=== PATIENT | female | born 1945 | race American Indian/Alaskan Native ===

== ENCOUNTER 2019-01-07 20:08 | Emergency (ER) | payer MEDICARE ==
[2019-01-07] MEDS ORDERED: NORCO 5/325 PO ONE (20:52)
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
--- NOTE | 2019-01-07 21:44 | XRay Report ---
PROCEDURE: XR SHOULDER 2+V RT TECHNIQUE: Right shoulder radiographs, three views. HISTORY: injury COMPARISONS: None . FINDINGS: Fracture (s) and/or Dislocation(s): An acute fracture is noted involving the inferior angle of right scapula with mild displacement. Old healed fracture deformities are noted involving right seventh an d eighth ribs . Joint space(s): Normal . Soft tissues: Normal . Bone mineralization: Normal . Foreign bodies: None . IMPRESSION: Acute fracture inferior angle right scapula. This document is electronically signed by Clayton Coyle MD., January 07 2019 09:41:55 PM ET
[2019-01-08] MEDS ORDERED: MORPHINE IM ONE (00:48)
[2019-01-08] MEDS ORDERED: PERCOCET 5/325 PO ONE (08:49)
[2019-01-08 15:41] VITALS: BP 128/54
== END 2019-01-08 13:56 | disposition home or self-care (01) ==
LOC: ED 20:08
DX: S42.101A Fracture of unspecified part of scapula, right shoulder, initial encounter for closed fracture (principal); K21.9 Gastro-esophageal reflux disease without esophagitis; I12.9 Hypertensive chronic kidney disease with stage 1 through stage 4 chronic kidney disease, or unspecified chronic kidney disease; N18.3 Chronic kidney disease, stage 3 (moderate); G43.909 Migraine, unspecified, not intractable, without status migrainosus; J45.909 Unspecified asthma, uncomplicated; Z79.899 Other long term (current) drug therapy; Z88.6 Allergy status to analgesic agent; Z88.8 Allergy status to other drugs, medicaments and biological substances; W18.2XXA Fall in (into) shower or empty bathtub, initial encounter; Y93.89 Activity, other specified; Y92.89 Other specified places as the place of occurrence of the external cause; Y99.8 Other external cause status
CPT/HCPCS: 73030; 96372; 99284; J2270

== ENCOUNTER 2019-09-02 19:03 | Emergency (ER) | payer MEDICARE ==
--- NOTE | 2019-09-02 19:28 | Emergency Department Report ---
Chief Complaint: Seizure Stated Complaint: SEIZURE - HPI History of Present Illness: 74 y.o. female with history of depression and bipolar disorder presents from [facility] after having a seizure while sitting down. Patient denies urine incontinence. Patient denies syncope. Patient complains of headache. Patient denies biting of the tongue. Patient has no prior history of seizure disorder. Patient states that she did not sleep last night. - Exam Vital Signs: Vital Signs 09/02/19 09/02/19 19:16 19:20 Temperature 97.4 F L 97.4 F L Respiratory 18 Rate Blood Pressure 150/97 O2 Sat by Pulse 98 Oximetry MSE screening note: Focused history and physical exam performed. Due to findings the following was ordered: CBC, CMP. Tox screen, CT Head ED Disposition for MSE Condition: Stable
--- NOTE | 2019-09-02 20:35 | Cat Scan Report ---
CT head/brain wo con INDICATION / CLINICAL INFORMATION: Seizure. TECHNIQUE: Axial CT imaging of brain was obtained without contrast. Coronal and sagittal reformatted imaging obt ained and reviewed. All CT scans at this location are performed using CT dose reduction for ALARA by means of automated exposure control. COMPARISON: None available. FINDINGS: No intracranial hemorrhage, mass, or midline shift identified. No extra-axial fluid collection or sug gestion of acute territorial infarction. Ventricular system and basilar cisterns are unremarkable. Age-appropriate cerebral/cerebellar atrophy noted. Mild microvascular angiopathic changes noted. Visualized paranasal sinuses and mastoid air cells are well aerated and clear. Prosthetic left orbit noted. No calvarial fracture noted. No soft tissue abnormality. IMPRESSION: 1. No acute intracranial abnormality. Age-related changes. Signer Name: Gale Mendoza MD Signed: 09/02/2019 8:31 PM Workstation Name: [id number]
[2019-09-02 21:22] LABS: Alanine Aminotransferase 22 units/L (7-56); Albumin 4.4 g/dL (3.9-5); BUN/Creatinine Ratio 15; Blood Urea Nitrogen 16 mg/dL (7-17); Calcium 10.3 mg/dL (8.4-10.2); Hemolysis Index 6
[2019-09-02 21:51] LABS: Hemoglobin 12.9 gm/dl (10.1-14.3); Mean Corpuscular HGB Conc 33 % (30-34); Mean Corpuscular Volume 90 fl (79-97); Platelet Count 307 K/mm3 (140-440); Red Blood Count 4.33 M/mm3 (3.65-5.03); Red Cell Distribution Width 13.5 % (13.2-15.2)
--- NOTE | 2019-09-02 23:12 | Emergency Department Report ---
ED Seizure HPI - General Chief Complaint: Seizure Stated Complaint: SEIZURE Time Seen by Provider: 09/02/19 22:12 Source: patient, EMS Mode of arrival: Wheelchair Limitations: No Limitations - History of Present Illness Initial Comments: 74-year-old female with history of hypertension and bipolar disorder presents the ED after having [address] [facility]. The first seizure was this morning after eating breakfast, second seizure was approximately 5 hours later. Patient reports she has been having headaches because her blood pressure medication was incorrect at [place]. Patient was admitted to [place] 2 days ago for her bipolar. Patient also states she did not get any sleep last night because she is also not receiving the same medication for sleep that her own physician was giving her. Patient has no history of seizures in the past. Patient has a noticeable tremor in the right arm, she states it is because she is cold, however son states it has been present for approximately 1 week now. MD Complaint: seizure -: This morning, This evening Seizure History: none Place: other Possible Precipitating Event: lack of sleep Associated Symptoms: denies: chest pain, fever/chills, shortness of breath, tongue injury Treatments Prior to Arrival: benzodiazepines - Related Data Home Medications Medication Instructions Recorded Confirmed Last Taken Atenolol/Chlorthalidone 0.5 tab PO QDAY 09/10/13 09/10/13 09/17/13 03:00 [Atenolol-Chlorthalidone 100-25 mg] 1 TAB B1/B2/B3/B5/B6/Iron/Meth/Choln 118 ml PO QDAY 09/10/13 09/10/13 09/16/13 [Geritol Tonic] Citalopram Hydrobromide [celeXA] 40 mg PO DAILY 09/10/13 09/10/13 09/16/13 40 MG Fenofibrate Nanocrystallized 145 mg PO QDAY 09/10/13 09/10/13 09/16/13 [Tricor] 145 MG Fexofenadine/Pseudoephedrine 1 each PO QDAY 09/10/13 09/10/13 09/16/13 [Fexofenadine-Pse ER 180-240 Tb] 1 TAB Ibandronate Sodium [Boniva] 150 mg PO QMONTH 09/10/13 09/10/13 Unknown Iron [Iron 18 MG TAB] 28 mg PO QDAY 09/10/13 09/10/1314 18 MG Lansoprazole [Prevacid] 15 mg PO QDAY 09/10/13 09/10/13 09/17/13 03:00 15 MG Levothyroxine [Synthroid] 88 mcg PO QAM 09/10/13 09/10/13 09/17/13 03:00 88 MCG Ziprasidone [Geodon] 60 mg PO QHS 09/10/13 09/10/13 09/16/13 60 MG buPROPion [Wellbutrin] 150 mg PO BID 09/10/13 09/10/13 09/16/13 75 MG busPIRone [Buspar] 15 mg PO TID 09/10/13 09/10/13 09/16/13 10 MG clonazePAM [KlonoPIN] 2 mg PO QHS 09/10/13 09/10/13 09/16/13 2 MG diphenhydrAMINE [Benadryl CAP] 50 mg PO QHS 09/10/13 09/10/13 09/16/13 50 MG donepeziL [Aricept] 10 mg PO QDAY 09/10/13 09/10/13 09/16/13 10 MG lamoTRIgine [LaMICtal] 200 mg PO QDAY 09/10/13 09/10/13 09/16/13 200 MG Previous Rx's Medication Instructions Recorded Last Taken Type HYDROcodone/APAP 5-325 [[place] 1 each PO Q6HR PRN #10 tablet 01/07/19 Unknown Rx 5/325] levETIRAcetam [Keppra TAB] 500 mg PO BID #60 tablet 09/03/19 Unknown Rx Allergies Allergy/AdvReac Type Severity Reaction Status Date / Time prednisone Allergy caused an Verified 09/07/13 14:42 abcess NSAIDS (Non-Steroidal AdvReac Unknown Verified 09/17/13 07:10 Anti-Inflamma STEROIDAL ANTIINFLAMMATORIES AdvReac Unknown Uncoded 09/17/13 07:20 ED Review of Systems ROS: Stated complaint: SEIZURE Other details as noted in HPI Comment: All other systems reviewed and negative Constitutional: denies: chills, fever Respiratory: denies: shortness of breath Cardiovascular: denies: chest pain Neurological: headache Psychiatric: other (reports insomnia) ED Past Medical Hx - Past Medical History Previous Medical History?: Yes Hx Hypertension: Yes (44 yrs) Hx GERD: Yes Hx Renal Disease: Yes (stage 3, Cr 1.1) Hx Headaches / Migraines: Yes Hx Psychiatric Treatment: Yes (Bipolar, Depression) Hx Asthma: Yes - Surgical History Past Surgical History?: No - Social History Smoking Status: Never Smoker Substance Use Type: None - Medications Home Medications: Home Medications Medication Instructions Recorded Confirmed Last Taken Type Atenolol/Chlorthalidone 0.5 tab PO QDAY 09/10/13 09/10/13 09/17/13 03:00 History [Atenolol-Chlorthalidone 100-25 mg] 1 TAB B1/B2/B3/B5/B6/Iron/Meth/Choln 118 ml PO QDAY 09/10/13 09/10/13 09/16/13 History [Geritol Tonic] Citalopram Hydrobromide [celeXA] 40 mg PO DAILY 09/10/13 09/10/13 09/16/13 History 40 MG Fenofibrate Nanocrystallized 145 mg PO QDAY 09/10/13 09/10/13 09/16/13 History [Tricor] 145 MG Fexofenadine/Pseudoephedrine 1 each PO QDAY 09/10/13 09/10/13 09/16/13 History [Fexofenadine-Pse ER 180-240 Tb] 1 TAB Ibandronate Sodium [Boniva] 150 mg PO QMONTH 09/10/13 09/10/13 Unknown History Iron [Iron 18 MG TAB] 28 mg PO QDAY 09/10/13 09/10/13 09/16/13 History 18 MG Lansoprazole [Prevacid] 15 mg PO QDAY 09/10/13 09/10/13 09/17/13 03:00 History 15 MG Levothyroxine [Synthroid] 88 mcg PO QAM 09/10/13 09/10/13 09/17/13 03:00 History 88 MCG Ziprasidone [Geodon] 60 mg PO QHS 09/10/13 09/10/13 09/16/13 History 60 MG buPROPion [Wellbutrin] 150 mg PO BID 09/10/13 09/10/13 09/16/13 History 75 MG busPIRone [Buspar] 15 mg PO TID 02/24/14 02/24/14 03/02/14 History 10 MG clonazePAM [KlonoPIN] 2 mg PO QHS 09/10/13 09/10/13 09/16/13 History 2 MG diphenhydrAMINE [Benadryl CAP] 50 mg PO QHS 09/10/13 09/10/13 09/16/13 History 50 MG donepeziL [Aricept] 10 mg PO QDAY 09/10/13 09/10/13 09/16/13 History 10 MG lamoTRIgine [LaMICtal] 200 mg PO QDAY 09/10/13 09/10/13 09/16/13 History 200 MG HYDROcodone/APAP 5-325 [[place] 1 each PO Q6HR PRN #10 tablet 01/07/19 Unknown Rx 5/325] levETIRAcetam [Keppra TAB] 500 mg PO BID #60 tablet 09/03/19 Unknown Rx ED Physical Exam - General Limitations: No Limitations General appearance: alert, in no apparent distress - Head Head exam: Present: atraumatic, normocephalic - Eye Eye exam: Present: normal appearance, EOMI - ENT ENT exam: Present: mucous membranes moist - Neck Neck exam: Present: normal inspection - Respiratory Respiratory exam: Present: normal lung sounds bilaterally. Absent: respiratory distress - Cardiovascular Cardiovascular Exam: Present: regular rate, normal rhythm - GI/Abdominal GI/Abdominal exam: Present: soft. Absent: distended, tenderness - Extremities Exam Extremities exam: Present: normal inspection - Neurological Exam Neurological exam: Present: alert, oriented X3, CN II-XII intact, other (resting tremor noted in right upper extremity). Absent: motor sensory deficit - Psychiatric Psychiatric exam: Present: normal affect, normal mood - Skin Skin exam: Present: warm, dry, intact, normal color. Absent: rash ED Course Vital Signs 09/02/19 09/02/19 09/02/19 19:16 19:20 19:29 Temperature 97.4 F L 97.4 F L 97.4 F L Pulse Rate 63 Respiratory 18 18 Rate Blood Pressure 150/97 Blood Pressure 150/97 [Left] O2 Sat by Pulse 98 98 Oximetry 09/03/19 09/03/19 09/03/19 00:25 01:02 01:14 Temperature Pulse Rate 65 Respiratory 16 Rate Blood Pressure 180/80 Blood Pressure 180/80 167/86 [Left] O2 Sat by Pulse 97 Oximetry ED Medical Decision Making - Lab Data Result diagrams: 09/02/19 21:17 09/02/19 20:22 - Radiology Data Radiology results: report reviewed, image reviewed - Medical Decision Making 74-year-old female presents to ED from [place] facility after having 2 seizures earlier today. Patient has no history of seizures in the past. She is currently back to her baseline. She is afebrile. She is neurologically intact, except for resting tremor in the right arm, which son states has been present for a couple of weeks now. Patient loaded with Keppra here in ED. Prescription given since patient did have 2 seizures today. Patient does report that she has not been sleeping. This may have contributed to the seizure today. Also may be taking new psychiatric medications that she was not on previously which may have lowered her seizure threshold. Son at bedside. Advised that patient needs to follow-up with neurologist. Prescriptions given. Return precautions given. - Differential Diagnosis intracranial abnormality, electrolyte abnormality, infection Critical care attestation.: If time is entered above; I have spent that time in minutes in the direct care of this critically ill patient, excluding procedure time. ED Disposition Clinical Impression: New onset seizure Disposition: DC-01 TO HOME OR SELFCARE Is pt being admited?: No Condition: Stable Instructions: New-Onset Seizure in Adults (ED) Prescriptions: levETIRAcetam [Keppra TAB] 500 mg PO BID #60 tablet Referrals: PRIMARY MD RUCHI [Primary Care Provider] - 3-5 Days KAYLEEN LEYVA MD [Referring] - 3-5 Days Time of Disposition: 00:21
[2019-09-02 23:34] LABS: Bilirubin,Urine NEG (Negative); Blood,Urine NEG (Negative); Color,Urine Yellow (Yellow); Protein,Urine <15 mg/dL mg/dL (Negative); Urobilinogen,Urine < 2.0 mg/dL (<2.0)
[2019-09-02] MEDS ORDERED: levETIRAcetam 500 MG TAB PO ONE ×2 (23:36→23:53)
[2019-09-02 23:41] LABS: Amphetamine Screen,Urine PRESUMPTIVE NEGATIVE; Benzodiazepines Screen,Urine PRESUMPTIVE NEGATIVE; Cannabinoid Screen,Urine PRESUMPTIVE NEGATIVE; Cocaine Screen,Urine PRESUMPTIVE NEGATIVE; Methadone Screen,Urine PRESUMPTIVE NEGATIVE; Opiate Screen,Urine PRESUMPTIVE NEGATIVE
[2019-09-02] MEDS: levETIRAcetam 1000 MG/NS 0.75% 1,000 MG/100 ML BAG IV ONE ×2 (23:48→23:54)
[2019-09-03] MEDS ORDERED: cloNIDine 0.1 MG TAB PO ONE (00:48)
[2019-09-03 01:14] VITALS: BP 167/86
== END 2019-09-03 01:21 | disposition home or self-care (01) ==
LOC: ED 19:03
DX: R56.9 Unspecified convulsions (principal); I10 Essential (primary) hypertension; K21.9 Gastro-esophageal reflux disease without esophagitis; G43.909 Migraine, unspecified, not intractable, without status migrainosus; Z79.899 Other long term (current) drug therapy; Z88.8 Allergy status to other drugs, medicaments and biological substances
CPT/HCPCS: 36415; 70450; 80053; 80307; 80320; 81001; 85025; G0480

== ENCOUNTER 2020-05-26 08:06 | Observation (INO) | payer MEDICARE ==
--- NOTE | 2020-05-26 10:09 | XRay Report ---
CHEST 1 VIEW INDICATION: Syncope. COMPARISON: None. FINDINGS: Support devices: None. Heart: Normal. Lungs/Pleura: No acute pulmonary or pleural findings. IMPRESSION: 1. No acute findings. Signer Name: Kolby Archer MD Signed: 05/26/2020 10:05 AM Workstation Name: [id number]
[2020-05-26 10:14] LABS: Basophils # (Auto) 0.1 K/mm3 (0.0-0.1); Basophils % (Auto) 1.2 % (0.0-1.8); Eosinophils # (Auto) 0.3 K/mm3 (0.0-0.4); Hematocrit 37.6 % (30.3-42.9); Hemoglobin 12.2 gm/dl (10.1-14.3); Lymphocytes # (Auto) 2.4 K/mm3 (1.2-5.4); Lymphocytes % (Auto) 44.5 % (13.4-35.0); Mean Corpuscular HGB Conc 32 % (30-34); Mean Corpuscular Volume 88 fl (79-97); Monocytes # (Auto) 0.5 K/mm3 (0.0-0.8); Monocytes % (Auto) 9.3 % (0.0-7.3); Platelet Count 271 K/mm3 (140-440); Red Blood Count 4.25 M/mm3 (3.65-5.03); Red Cell Distribution Width 13.4 % (13.2-15.2)
[2020-05-26 10:20] LABS: Alanine Aminotransferase 15 units/L (7-56); Albumin 4.2 g/dL (3.9-5)
[2020-05-26 10:27] LABS: BUN/Creatinine Ratio 25; Blood Urea Nitrogen 27 mg/dL (7-17); Hemolysis Index 21
[2020-05-26 10:30] LABS: Bilirubin,Direct < 0.2 mg/dL (0-0.2)
[2020-05-26 10:37] LABS: Bacteria,Urine 1+ /HPF (Negative); Bilirubin,Urine NEG (Negative); Blood,Urine NEG (Negative); Color,Urine Yellow (Yellow); Mucus,Urine 3+ /HPF; Protein,Urine <15 mg/dL mg/dL (Negative); Urobilinogen,Urine < 2.0 mg/dL (<2.0)
--- NOTE | 2020-05-26 10:38 | Cat Scan Report ---
NONENHANCED CT SCAN OF THE HEAD: INDICATION / CLINICAL INFORMATION: 75 years Female; Syncope. TECHNIQUE: Routine CT head without contrast. All CT scans at this location are performed using CT dos e reduction for ALARA by means of automated exposure control. COMPARISON: CT scan of the head from 09/02/2019 FINDINGS: BRAIN / INTRACRANIAL CONTENTS: No acute hemorrhage, mass effect, midline shift, hydrocephalus, or acu te, large territorial infarct. No chronic infarct or focal encephalomalacia. Chronic ischemic changes in the corpus stratum bilaterally; remains unchanged CRANIOCERVICAL JUNCTION: No significant abnormality. 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 ADDITIONAL FINDINGS: None. IMPRESSION: No acute focal parenchymal lesion in the brain CT findings remain unchanged Signer Name: Paul Lombardo MD Signed: 05/26/2020 10:33 AM Workstation Name: [id number]
--- NOTE | 2020-05-26 11:01 | Emergency Department Report ---
ED General Adult HPI - General Chief complaint: Pain General Stated complaint: LEG/HEAD PAIN Time Seen by Provider: 05/26/20 08:25 Source: patient, EMS Mode of arrival: Stretcher Limitations: No Limitations - History of Present Illness Initial comments: This is a 75-year-old female with a history of bipolar disorder and questionable seizures. She was found at her long term poorly responsive. She tells me that she thinks that she was just sleeping. She is emotionally labile and complains of chronic issues. She does not think that she was unresponsive. Medics found her to have stable vital signs and a normal glucose. She was transported withou t event to emergency department for further evaluation. She was responsive in route. She is able to answer questions adequately upon my encounter. -: unknown Associated Symptoms: denies other symptoms, other (Has chronic arthralgias) Treatments Prior to Arrival: none - Related Data Home Medications Medication Instructions Recorded Confirmed Last Taken Atenolol/Chlorthalidone 0.5 tab PO QDAY 09/10/13 09/10/13 09/17/13 03:00 [Atenolol-Chlorthalidone 100-25 mg] 1 TAB B1/B2/B3/B5/B6/Iron/Meth/Choln 118 ml PO QDAY 09/10/13 09/10/13 09/16/13 [Geritol Tonic] Citalopram Hydrobromide [celeXA] 40 mg PO DAILY 09/10/13 09/10/13 09/16/13 40 MG Fenofibrate Nanocrystallized 145 mg PO QDAY 09/10/13 09/10/13 09/16/13 [Tricor] 145 MG Fexofenadine/Pseudoephedrine 1 each PO QDAY 09/10/13 09/10/13 09/16/13 [Fexofenadine-Pse ER 180-240 Tb] 1 TAB Ibandronate Sodium [Boniva] 150 mg PO QMONTH 09/10/13 09/10/13 Unknown Iron [Iron 18 MG TAB] 28 mg PO QDAY 09/10/13 09/10/13 09/16/13 18 MG Lansoprazole [Prevacid] 15 mg PO QDAY 09/10/13 09/10/13 09/17/13 03:00 15 MG Levothyroxine [Synthroid] 88 mcg PO QAM 02/09/10/13 09/17/13 03:00 88 MCG Ziprasidone [Geodon] 60 mg PO QHS 09/10/13 09/10/13 09/16/13 60 MG buPROPion [Wellbutrin] 150 mg PO BID 09/10/13 09/10/13 09/16/13 75 MG busPIRone [Buspar] 15 mg PO TID 09/10/13 09/10/13 09/16/13 10 MG clonazePAM [KlonoPIN] 2 mg PO QHS 09/10/13 09/10/13 09/16/13 2 MG diphenhydrAMINE [Benadryl CAP] 50 mg PO QHS 09/10/13 09/10/13 09/16/13 50 MG donepeziL [Aricept] 10 mg PO QDAY 09/10/13 09/10/13 09/16/13 10 MG lamoTRIgine [LaMICtal] 200 mg PO QDAY 09/10/13 09/10/13 09/16/13 200 MG Previous Rx's Medication Instructions Recorded Last Taken Type HYDROcodone/APAP 5-325 [[place] 1 each PO Q6HR PRN #10 tablet 01/07/19 Unknown Rx 5/325] levETIRAcetam [Keppra TAB] 500 mg PO BID #60 tablet 09/03/19 Unknown Rx Allergies Allergy/AdvReac Type Severity Reaction Status Date / Time prednisone Allergy caused an Verified 09/07/13 14:42 abcess NSAIDS (Non-Steroidal AdvReac Unknown Verified 09/17/13 07:10 Anti-Inflamma STEROIDAL ANTIINFLAMMATORIES AdvReac Unknown Uncoded 09/17/13 07:20 ED Review of Systems ROS: Stated complaint: LEG/HEAD PAIN Other details as noted in HPI Constitutional: denies: chills, fever Eyes: eye discharge (Chronic associated with prosthesis O. D.). denies: eye pain, vision change ENT: denies: ear pain, throat pain Respiratory: denies: cough, shortness of breath Cardiovascular: denies: chest pain, palpitations Endocrine: no symptoms reported Gastrointestinal: denies: abdominal pain, nausea, diarrhea Genitourinary: frequency. denies: urgency, dysuria, discharge Musculoskeletal: denies: back pain, joint swelling, arthralgia Skin: denies: rash, lesions Neurological: denies: headache, weakness, paresthesias Psychiatric: denies: anxiety, depression Hematological/Lymphatic: denies: easy bleeding, easy bruising ED Past Medical Hx - Past Medical History Hx Hypertension: Yes (44 yrs) Hx GERD: Yes Hx Renal Disease: Yes (stage 3, Cr 1.1) Hx Headaches / Migraines: Yes Hx Psychiatric Treatment: Yes (Bipolar, Depression) Hx Asthma: Yes - Social History Smoking Status: Never Smoker Substance Use Type: None - Medications Home Medications: Home Medications Medication Instructions Recorded Confirmed Last Taken Type Atenolol/Chlorthalidone 0.5 tab PO QDAY 09/10/13 09/10/13 09/17/13 03:00 History [Atenolol-Chlorthalidone 100-25 mg] 1 TAB B1/B2/B3/B5/B6/Iron/Meth/Choln 118 ml PO QDAY 09/10/13 09/10/13 09/16/13 History [Geritol Tonic] Citalopram Hydrobromide [celeXA] 40 mg PO DAILY 09/10/13 09/10/13 09/16/13 History 40 MG Fenofibrate Nanocrystallized 145 mg PO QDAY 09/10/13 09/10/13 09/16/13 History [Tricor] 145 MG Fexofenadine/Pseudoephedrine 1 each PO QDAY 09/10/13 09/10/13 09/16/13 History [Fexofenadine-Pse ER 180-240 Tb] 1 TAB Ibandronate Sodium [Boniva] 150 mg PO QMONTH 09/10/13 09/10/13 Unknown History Iron [Iron 18 MG TAB] 28 mg PO QDAY 09/10/13 09/10/13 09/16/13 History 18 MG Lansoprazole [Prevacid] 15 mg PO QDAY 09/10/13 09/10/13 09/17/13 03:00 History 15 MG Levothyroxine [Synthroid] 88 mcg PO QAM 09/10/13 09/10/13 09/17/13 03:00 History 88 MCG Ziprasidone [Geodon] 60 mg PO QHS 09/10/13 09/10/13 09/16/13 History 60 MG buPROPion [Wellbutrin] 150 mg PO BID 09/10/13 09/10/13 09/16/13 History 75 MG busPIRone [Buspar] 15 mg PO TID 09/10/13 09/10/13 09/16/13 History 10 MG clonazePAM [KlonoPIN] 2 mg PO QHS 09/10/13 09/10/13 09/16/13 History 2 MG diphenhydrAMINE [Benadryl CAP] 50 mg PO QHS 09/10/13 09/10/13 09/16/13 History 50 MG donepeziL [Aricept] 10 mg PO QDAY 09/10/13 09/10/13 09/16/13 History 10 MG lamoTRIgine [LaMICtal] 200 mg PO QDAY 09/10/13 09/10/13 09/16/13 History 200 MG HYDROcodone/APAP 5-325 [[place] 1 each PO Q6HR PRN #10 tablet 01/07/19 Unknown Rx 5/325] levETIRAcetam [Keppra TAB] 500 mg PO BID #60 tablet 09/03/19 Unknown Rx ED Physical Exam - General Limitations: No Limitations General appearance: alert, in no apparent distress, obese - Head Head exam: Present: atraumatic, normocephalic - Eye Eye exam: Present: normal appearance, other (Discharge medial canthus, prosthesis O.D.) - ENT ENT exam: Present: mucous membranes moist - Neck Neck exam: Present: normal inspection. Absent: meningismus - Respiratory Respiratory exam: Present: normal lung sounds bilaterally. Absent: respiratory distress - Cardiovascular Cardiovascular Exam: Present: regular rate, normal rhythm. Absent: systolic murmur, diastolic murmur, rubs, gallop - GI/Abdominal GI/Abdominal exam: Present: soft, normal bowel sounds. Absent: distended, tenderness, guarding, rebound - Extremities Exam Extremities exam: Present: normal inspection - Back Exam Back exam: Present: normal inspection - Neurological Exam Neurological exam: Present: alert, oriented X3, CN II-XII intact. Absent: motor sensory deficit - Psychiatric Psychiatric exam: Present: normal mood, other (Labile affect) - Skin Skin exam: Present: warm, dry, intact, normal color. Absent: rash ED Course Vital Signs 05/26/20 05/26/20 08:21 11:01 Temperature 97.2 F L Pulse Rate 62 64 Respiratory 18 18 Rate Blood Pressure 172/70 Blood Pressure 156/70 [Left] O2 Sat by Pulse 97 97 Oximetry - Reevaluation(s) Reevaluation #1: Discussed with hospitalist. Patient will be admitted PUI for COVID-19. 05/26/20 13:20 Reevaluation #2: Discussed with Dr. Medina. Patient to be admitted. 05/26/20 13:22 ED Medical Decision Making - Lab Data Result diagrams: 05/26/20 09:25 05/26/20 09:25 Laboratory Results - last 24 hr 05/26/20 05/26/20 05/26/20 09:25 09:25 09:25 WBC 5.3 RBC 4.25 Hgb 12.2 Hct 37.6 MCV 88 MCH 29 MCHC 32 RDW 13.4 Plt Count 271 Lymph % (Auto) 44.5 H [place] % (Auto) 9.3 H Eos % (Auto) 6.0 H Baso % (Auto) 1.2 Lymph # (Auto) 2.4 [place] # (Auto) 0.5 Eos # (Auto) 0.3 Baso # (Auto) 0.1 Seg Neutrophils % 39.0 L Seg Neutrophils # 2.1 PT 13.4 INR 1.00 D-Dimer 440.65 H Sodium 142 Potassium 4.3 Chloride 103.5 Carbon Dioxide 32 H Anion Gap 11 BUN 27 H Creatinine 1.1 Estimated GFR 59 BUN/Creatinine Ratio 25 Glucose 98 Calcium 10.0 Magnesium Total Bilirubin Direct Bilirubin AST ALT Alkaline Phosphatase Total Creatine Kinase 114 CK-MB (CK-2) 2.0 CK-MB (CK-2) Rel Index 1.7 Troponin T < 0.010 Total Protein Albumin Albumin/Globulin Ratio Urine Color Urine Turbidity Urine pH Ur Specific [place] Urine Protein Urine Glucose (UA) Urine Ketones Urine Blood Urine Nitrite Urine Bilirubin Urine Urobilinogen Ur Leukocyte Esterase Urine WBC (Auto) Urine RBC (Auto) U Epithel Cells (Auto) Urine Bacteria (Auto) Urine Mucus 05/26/20 05/26/20 09:25 09:59 WBC RBC Hgb Hct MCV MCH MCHC RDW Plt Count Lymph % (Auto) [place] % (Auto) Eos % (Auto) Baso % (Auto) Lymph # (Auto) [place] # (Auto) Eos # (Auto) Baso # (Auto) Seg Neutrophils % Seg Neutrophils # PT INR D-Dimer Sodium Potassium Chloride Carbon Dioxide Anion Gap BUN Creatinine Estimated GFR BUN/Creatinine Ratio Glucose Calcium Magnesium 2.00 Total Bilirubin 0.30 Direct Bilirubin < 0.2 AST 16 ALT 15 Alkaline Phosphatase 49 Total Creatine Kinase CK-MB (CK-2) CK-MB (CK-2) Rel Index Troponin T Total Protein 7.2 Albumin 4.2 Albumin/Globulin Ratio 1.4 Urine Color Yellow Urine Turbidity Clear Urine pH 7.0 Ur Specific [place] 1.015 Urine Protein <15 mg/dl Urine Glucose (UA) Neg Urine Ketones Neg Urine Blood Neg Urine Nitrite Pos Urine Bilirubin Neg Urine Urobilinogen < 2.0 Ur Leukocyte Esterase Mod Urine WBC (Auto) 33.0 H Urine RBC (Auto) 1.0 U Epithel Cells (Auto) 1.0 Urine Bacteria (Auto) 1+ Urine Mucus 3+ - EKG Data -: EKG Interpreted by Me EKG shows normal: sinus rhythm, axis, intervals, QRS complexes, ST-T waves Rate: normal - EKG Data Interpretation: nonspecific ST-T wave liang - Radiology Data Radiology results: report reviewed (Chest x-ray and CT of the head no acute process) Groundglass infiltrate right lung consistent with inflammatory process. Critical care attestation.: If time is entered above; I have spent that time in minutes in the direct care of this critically ill patient, excluding procedure time. ED Disposition Clinical Impression: Person under investigation for COVID-19 Pneumonia Qualifiers: Pneumonia type: due to unspecified organism Laterality: right Lung location: lower lobe of lung Qualified Code(s): J18.9 - Pneumonia, unspecified organism Syncope Qualifiers: Syncope type: unspecified Qualified Code(s): R55 - Syncope and collapse UTI (urinary tract infection) Qualifiers: Urinary tract infection type: site unspecified Hematuria presence: without hem aturia Qualified Code(s): N39.0 - Urinary tract infection, site not specified Disposition: OP ADMIT IP TO THIS HOSP Is pt being admited?: Yes Does the pt Need Aspirin: Yes Condition: Stable Instructions: Bacterial Pneumonia (ED), Syncope (ED) Referrals: PRIMARY CARE, [Primary Care Provider] - 3-5 Days Time of Disposition: 13:22
--- NOTE | 2020-05-26 12:59 | Cat Scan Report ---
CTA CHEST WITH CONTRAST INDICATION / CLINICAL INFORMATION: syncope elevated dimer. TECHNIQUE: Axial CT images were obtained through the chest after injection of administration of IV co ntrast. 3 plane MIP and/or 3D reconstructions were produced. All CT scans at this location are perfor med using CT dose reduction for ALARA by means of automated exposure control. COMPARISON: None available. FINDINGS: PULMONARY ARTERIES: No central or segmental pulmonary embolus. THORACIC AORTA: Mild atherosclerotic calcification without acute abnormality. HEART: No significant abnormality. ADENOPATHY: No significant adenopathy. PLEURA: No pleural effusion. No pneumothorax. LUNGS: Mild asymmetric groundglass opacities within the right lower lobe with atelectasis in the ling jamie. Lungs are otherwise clear ADDITIONAL FINDINGS: None. UPPER ABDOMEN: No acute findings. SKELETAL STRUCTURES: Remote right rib fractures. No acute osseous findings. IMPRESSION: 1. No CT evidence for pulmonary embolism. 2. Groundglass opacities within the right lower lobe, which may reflect atelectasis or developing inf ectious or inflammatory process. Signer Name: Jim Ochoa MD Signed: 05/26/2020 12:55 PM Workstation Name: [id number]
--- NOTE | 2020-05-26 13:03 | History and Physical Report ---
History of Present Illness Chief complaint: She was not acting right and she was breathing hard History of present illness: 75 YO Personal Long Term Resident with Seizure Disorder, Hypothyroidism, Migraine Headache, Vascular Dementia with Behavioral Disturbance, Cerebral Atherosclerosis, GERD, Obesity Hypoventilation Syndrome, OA presents to ED for evaluation. Patient is confused with diminished cognition at the time of my evaluation and is unable to provide history. Patient history taken from EMS staff, ED staff as well as personal fpc staff. As per staff the patient was found to have increased confusion as well as decreased responsiveness this morning. EMS was notified and upon arrival the patient was found to be in distress and subsequently transported to [facility] for further care and evaluation of the aforementioned symptoms. The patient was seen and evaluated in the emergency department. All lab and imaging studies reviewed. The patient was found to have right lower lobe pneumonia on chest x-ray, metabolic encephalopathy, urinary tract infection. The patient was initiated on pneumonia protocol with IV antibiotic therapy. COVID-19 protocol initiated in the emergency department prior to my evaluation. Patient admitted to medical floor for further care due to increased risk of worsening symptoms. No further history is obtainable. Patient is confused and lethargic at the time of my evaluation but has a positive gag reflex and is able to protect her airway without difficulty. Personal fpc staff deny reports of fever, chills, chest pain, palpitation, productive cough, skin rash, recent ill contacts, or known exposure to COVID-19. No prior admission for review. All medication listed at time of admission has been reconciled. Past History Past Medical History: GERD, hypothyroidism (See HPI), migraines, seizures, other (See HPI) Past Surgical History: No surgical history, Other (Reviewed) Social history: . denies: smoking, alcohol abuse, prescription drug abuse Family history: hypertension Medications and Allergies Allergies Allergy/AdvReac Type Severity Reaction Status Date / Time prednisone Allergy caused an Verified 09/07/13 14:42 abcess NSAIDS (Non-Steroidal AdvReac Unknown Verified 09/17/13 07:10 Anti-Inflamma STEROIDAL ANTIINFLAMMATORIES AdvReac Unknown Uncoded 09/17/13 07:20 Home Medications Medication Instructions Recorded Confirmed Last Taken Type Atenolol/Chlorthalidone 0.5 tab PO QDAY 09/10/13 09/10/13 09/17/13 03:00 History [Atenolol-Chlorthalidone 100-25 mg] 1 TAB B1/B2/B3/B5/B6/Iron/Meth/Choln 118 ml PO QDAY 09/10/13 09/10/13 09/16/13 History [Geritol Tonic] Citalopram Hydrobromide [celeXA] 40 mg PO DAILY 09/10/13 09/10/13 09/16/13 History 40 MG Fenofibrate Nanocrystallized 145 mg PO QDAY 09/10/13 09/10/13 09/16/13 History [Tricor] 145 MG Fexofenadine/Pseudoephedrine 1 each PO QDAY 09/10/13 09/10/13 09/16/13 History [Fexofenadine-Pse ER 180-240 Tb] 1 TAB Ibandronate Sodium [Boniva] 150 mg PO QMONTH 09/10/13 09/10/13 Unknown History Iron [Iron 18 MG TAB] 28 mg PO QDAY 09/10/13 09/10/13 09/16/13 History 18 MG Lansoprazole [Prevacid] 15 mg PO QDAY 09/10/13 09/10/13 09/17/13 03:00 History 15 MG Levothyroxine [Synthroid] 88 mcg PO QAM 09/10/13 09/10/13 09/17/13 03:00 History 88 MCG Ziprasidone [Geodon] 60 mg PO QHS 09/10/13 09/10/13 09/16/13 History 60 MG buPROPion [Wellbutrin] 150 mg PO BID 09/10/13 09/10/13 09/16/13 History 75 MG busPIRone [Buspar] 15 mg PO TID 09/10/13 09/10/13 09/16/13 History 10 MG clonazePAM [KlonoPIN] 2 mg PO QHS 09/10/13 09/10/13 09/16/13 History 2 MG diphenhydrAMINE [Benadryl CAP] 50 mg PO QHS 09/10/13 09/10/13 09/16/13 History 50 MG donepeziL [Aricept] 10 mg PO QDAY 09/10/13 09/10/13 09/16/13 History 10 MG lamoTRIgine [LaMICtal] 200 mg PO QDAY 09/10/13 09/10/13 09/16/13 History 200 MG HYDROcodone/APAP 5-325 [[place] 1 each PO Q6HR PRN #10 tablet 01/07/19 Unknown Rx 5/325] levETIRAcetam [Keppra TAB] 500 mg PO BID #60 tablet 09/03/19 Unknown Rx Review of Systems ROS unobtainable: due to mental status Exam - Constitutional Vitals: Temp Pulse Resp BP Pulse Ox 97.2 F L 64 18 156/70 97 05/26/20 08:21 05/26/20 11:01 05/26/20 11:01 05/26/20 11:01 05/26/20 11:01 General appearance: Present: mild distress, obese - EENT Eyes: Present: PERRL ENT: hearing intact, clear oral mucosa - Neck Neck: Present: supple, normal ROM - Respiratory Respiratory effort: normal, labored Respiratory: bilateral: diminished - Cardiovascular Heart Sounds: Present: S1 & S2. Absent: rub, click - Extremities Extremities: pulses symmetrical, No edema Peripheral Pulses: within normal limits - Abdominal General gastrointestinal: Present: soft, non-tender, non-distended, normal bowel sounds Female genitourinary: Present: normal - Integumentary Integumentary: Present: clear, warm, dry - Musculoskeletal Musculoskeletal: gait normal, strength equal bilaterally - Psychiatric Psychiatric: no appropriate mood/affect, no intact judgment & insight, agitated - Neurologic Neurologic: CNII-XII intact, no focal deficits, moves all extremities, no gait normal HEART Score - HEART Score Troponin: Troponin T < 0.010 ng/mL (0.00-0.029) 05/26/20 09:25 Results - Labs CBC & Chem 7: 05/26/20 09:25 05/26/20 14:39 Labs: Abnormal lab results 05/26/20 05/26/20 05/26/20 Range/Units 09:25 09:25 09:25 Lymph % (Auto) 44.5 H (13.4-35.0) % [place] % (Auto) 9.3 H (0.0-7.3) % Eos % (Auto) 6.0 H (0.0-4.3) % Seg Neutrophils % 39.0 L (40.0-70.0) % D-Dimer 440.65 H (0-234) ng/mlDDU Carbon Dioxide 32 H (22-30) mmol/L BUN 27 H (7-17) mg/dL Urine WBC (Auto) (0.0-6.0) /HPF 05/26/20 Range/Units 09:59 Lymph % (Auto) (13.4-35.0) % [place] % (Auto) (0.0-7.3) % Eos % (Auto) (0.0-4.3) % Seg Neutrophils % (40.0-70.0) % D-Dimer (0-234) ng/mlDDU Carbon Dioxide (22-30) mmol/L BUN (7-17) mg/dL Urine WBC (Auto) 33.0 H (0.0-6.0) /HPF Assessment and Plan - Patient Problems (1) Right lower lobe pneumonia Current Visit: Yes Status: Acute Plan to address problem: Pneumonia protocol: CBC, CMP, chest x-ray, IV antibiotic therapy, blood culture, pulse oximetry, nebulizer therapy. CT scan of the chest. (2) Metabolic encephalopathy Current Visit: Yes Status: Acute Plan to address problem: CT scan of the head, neuro check, seizure precautions, aspiration precautions (3) Person under investigation for COVID-19 Current Visit: Yes Status: Acute Plan to address problem: Coronavirus protocol: Isolation precautions, contact precautions, coronavirus PCR ordered in the ED and is pending at time of admission. (4) UTI (urinary tract infection) Current Visit: Yes Status: Acute Qualifiers: Urinary tract infection type: site unspecified Hematuria presence: without hematuria Qualified Code(s): N39.0 - Urinary tract infection, site not specified Plan to address problem: IV antibiotic therapy, CBC, CMP, urinalysis, (5) DVT prophylaxis Current Visit: Yes Status: Acute Plan to address problem: SCD to bilateral lower extremities while in bed, prophylactic anticoagulation (6) Advance care planning Current Visit: Yes Status: Acute Plan to address problem: Disease education conducted, prognosis discussed, patient is full code, +30 minutes.
[2020-05-26] MEDS ORDERED: ACETAMINOPHEN 325 MG TAB PO PRN (13:06)
[2020-05-26] MEDS ORDERED: ONDANSETRON 4 MG/2 ML INJ IV PRN (13:06)
[2020-05-26] MEDS ORDERED: ALBUTEROL 2.5 MG/3 ML NEBU IH PRN (13:06)
[2020-05-26] MEDS ORDERED: IBANDRONATE SODIUM 150 MG PO SCH (13:15)
[2020-05-26] MEDS ORDERED: cefTRIAXone/NS 1 GM/50 ML 1 GM/50 ML BAG IV ONE ×2 (13:23→14:24)
[2020-05-26 15:38] LABS: C-Reactive Protein 0.3 mg/dL (0.00-1.30)
[2020-05-26] MEDS: busPIRone 10 MG TAB PO SCH ×2 (20:01→22:29)
[2020-05-26] MEDS ORDERED: HYDROcodone/ACETAMINOPHEN 5-325 MG TAB ONE (21:35)
[2020-05-26] MEDS ORDERED: levETIRAcetam 500 MG TAB PO ONE (21:35)
[2020-05-26] MEDS: levETIRAcetam 500 MG TAB PO SCH (21:42)
[2020-05-26] MEDS: HYDROcodone/ACETAMINOPHEN 5-325 MG TAB PO PRN (21:43)
[2020-05-26] MEDS ORDERED: diphenhydrAMINE 25 MG CAP PO ONE (22:24)
[2020-05-26] MEDS: ZIPRASIDONE 60 MG CAP PO SCH (22:31)
[2020-05-26] MEDS: diphenhydrAMINE 50 MG CAP PO SCH (22:31)
[2020-05-26] MEDS: buPROPion 75 MG TAB PO SCH (22:33)
[2020-05-27 05:35] LABS: Hematocrit 37.9 % (30.3-42.9); Hemoglobin 12.4 gm/dl (10.1-14.3); Mean Corpuscular HGB Conc 33 % (30-34); Mean Corpuscular Volume 88 fl (79-97); Platelet Count 258 K/mm3 (140-440); Red Blood Count 4.31 M/mm3 (3.65-5.03); Red Cell Distribution Width 13.7 % (13.2-15.2)
[2020-05-27 05:39] LABS: Basophils # (Auto) 0.1 K/mm3 (0.0-0.1); Basophils % (Auto) 0.9 % (0.0-1.8); Eosinophils # (Auto) 0.4 K/mm3 (0.0-0.4); Eosinophils % (Auto) 6.4 % (0.0-4.3); Lymphocytes # (Auto) 3.3 K/mm3 (1.2-5.4); Monocytes # (Auto) 0.4 K/mm3 (0.0-0.8); Monocytes % (Auto) 7.2 % (0.0-7.3)
[2020-05-27 06:00] LABS: BUN/Creatinine Ratio 19; Blood Urea Nitrogen 19 mg/dL (7-17); Calcium 10.1 mg/dL (8.4-10.2); Hemolysis Index 10
[2020-05-27] MEDS: LORATADINE/PSEUDOEPHEDRINE 10-240 MG TAB 24HR PO SCH (10:00)
[2020-05-27] MEDS ORDERED: PSEUDOEPHEDRINE PO SCH (10:00)
[2020-05-27] MEDS ORDERED: CHOLN PO SCH (10:00)
[2020-05-27] MEDS ORDERED: B2 PO SCH (10:00)
[2020-05-27] MEDS ORDERED: ATENOLOL PO SCH (10:00)
[2020-05-27] MEDS ORDERED: [UNRECOGNIZED DRUG - OTHER] PO SCH (10:00)
[2020-05-27] MEDS ORDERED: IRON PO SCH (10:00)
[2020-05-27] MEDS ORDERED: CITALOPRAM HYDROBROMIDE 40 MG PO SCH (10:00)
[2020-05-27] MEDS ORDERED: LAMOTRIGINE 200 MG PO SCH (10:00)
[2020-05-27] MEDS ORDERED: LANSOPRAZOLE 15 MG PO SCH (10:00)
[2020-05-27] MEDS ORDERED: B6 PO SCH (10:00)
[2020-05-27] MEDS ORDERED: B5 PO SCH (10:00)
[2020-05-27] MEDS ORDERED: [UNRECOGNIZED DRUG - OTHER] PO SCH (10:00)
[2020-05-27] MEDS ORDERED: B1 PO SCH (10:00)
[2020-05-27] MEDS ORDERED: B3 PO SCH (10:00)
[2020-05-27] MEDS ORDERED: CHLORTHALIDONE PO SCH (10:00)
[2020-05-27] MEDS ORDERED: FEXOFENADINE PO SCH (10:00)
[2020-05-27] MEDS ORDERED: METH PO SCH (10:00)
[2020-05-27] MEDS ORDERED: IRON 28 MG PO SCH (10:00)
[2020-05-27] MEDS: atenoloL 50 MG TAB PO SCH (11:02)
[2020-05-27] MEDS: lamoTRIgine 100 MG TAB PO SCH (12:02)
[2020-05-27] MEDS: FENOFIBRATE 145 MG TAB PO SCH (12:03)
[2020-05-27] MEDS: levETIRAcetam 500 MG TAB PO SCH ×2 (12:03→23:14)
[2020-05-27] MEDS: PANTOPRAZOLE 20 MG TAB PO SCH (12:03)
[2020-05-27] MEDS: CITALOPRAM 20 MG TAB PO SCH (12:04)
[2020-05-27] MEDS: FERROUS SULFATE 325 MG TAB PO SCH (12:04)
[2020-05-27] MEDS: LEVOTHYROXINE 88 MCG TAB PO SCH (12:08)
[2020-05-27] MEDS: busPIRone 10 MG TAB PO SCH ×3 (12:09→23:13)
[2020-05-27] MEDS: buPROPion 75 MG TAB PO SCH ×2 (12:59→23:12)
[2020-05-27] MEDS: MULTIVITAMINS 5 ML ORAL LIQUID PO SCH (13:00)
[2020-05-27] MEDS: DONEPEZIL 10 MG TAB PO SCH (13:01)
[2020-05-27] MEDS: CHLORTHALIDONE 25 MG TAB PO SCH (13:01)
[2020-05-27] MEDS ORDERED: CEFEPIME/NS 1 GM/100 ML 1 GM/100 ML BAG IV SCH (14:00)
--- NOTE | 2020-05-27 16:18 | Progress Note ---
Assessment and Plan Assessment and plan: 75 YO Personal Long Term Resident with Seizure Disorder, Hypothyroidism, Migraine Headache, Vascular Dementia with Behavioral Disturbance, Cerebral Atherosclerosis, GERD, Obesity Hypoventilation Syndrome, OA presents to ED for evaluation. Patient is confused with diminished cognition at the time of my evaluation and is unable to provide history. Patient history taken from EMS staff, ED staff as well as personal detention staff. As per staff the patient was found to have increased confusion as well as decreased responsiveness this morning. The patient was found to have right lower lobe pneumonia on chest x-ray, metabolic encephalopathy, urinary tract infection. The patient was initiated on pneumonia protocol with IV antibiotic therapy. COVID-19 protocol initiated in the emergency department prior to my evaluation. cxr: Right lower lobe infiltrate (1) Right lower lobe pneumonia Current Visit: Yes Status: Acute Plan to address problem: Pneumonia protocol: CBC, CMP, chest x-ray, IV antibiotic therapy, blood culture, pulse oximetry, nebulizer therapy. 05/27: CTA chest negative for PE (2) Metabolic encephalopathy Current Visit: Yes Status: Acute Plan to address problem: 05/27: Resolved. CT scan of the head- NEGATIVE, neuro check, seizure precautions, aspiration precautions (3) Person under investigation for COVID-19 Current Visit: Yes Status: Acute Plan to address problem: Negative. Will discontinue Coronavirus protocol: (4) UTI (urinary tract infection) Current Visit: Yes Status: Acute Qualifiers: Urinary tract infection type: site unspecified Hematuria presence: without hematuria Qualified Code(s): N39.0 - Urinary tract infection, site not specified Plan to address problem: IV antibiotic therapy, CBC, CMP, urinalysis, GNR on culture. Continue abx. (5) DVT prophylaxis Current Visit: Yes Status: Acute Plan to address problem: SCD to bilateral lower extremities while in bed, prophylactic anticoagulation (6) Advance care planning Current Visit: Yes Status: Acute Plan to address problem: Disease education conducted, prognosis discussed, patient is full code, +30 minutes. Anticipate discharge in a.m., will obtain PT OT evaluation and treat for debility and severe pain. Patient will continue outpatient follow-up with vascular doctor. History Interval history: Patient seen and examined, Complains of bilateral leg pain, ongoing outpatient vascular work up. Breathing improving Hospitalist Physical - Physical exam Narrative exam: General appearance: Present: mild distress, obese - EENT Eyes: Present: PERRL ENT: hearing intact, clear oral mucosa - Neck Neck: Present: supple, normal ROM - Respiratory Respiratory effort: normal, labored Respiratory: bilateral: diminished - Cardiovascular Heart Sounds: Present: S1 & S2. Absent: rub, click - Extremities Extremities: pulses symmetrical, No edema Peripheral Pulses: within normal limits - Abdominal General gastrointestinal: Present: soft, non-tender, non-distended, normal bowel sounds Female genitourinary: Present: normal - Integumentary Integumentary: Present: clear, warm, dry - Musculoskeletal Musculoskeletal: gait normal, strength equal bilaterally - Psychiatric Psychiatric: no appropriate mood/affect, no intact judgment & insight, agitated - Neurologic Neurologic: CNII-XII intact, no focal deficits, moves all extremities, no gait normal - Constitutional Vitals: Temp Pulse Resp BP Pulse Ox 99.1 F 62 17 135/73 96 05/27/20 15:07 05/27/20 15:07 05/27/20 15:07 05/27/20 15:07 05/27/20 15:07 General appearance: Present: mild distress, obese HEART Score - HEART Score Troponin: Troponin T < 0.010 ng/mL (0.00-0.029) 05/26/20 09:25 Results - Labs CBC & Chem 7: 05/27/20 05:01 05/27/20 05:01 Labs: Laboratory Last Values WBC 5.9 K/mm3 (4.5-11.0) 05/27/20 05:01 RBC 4.31 M/mm3 (3.65-5.03) 05/27/20 05:01 Hgb 12.4 gm/dl (10.1-14.3) 05/27/20 05:01 Hct 37.9 % (30.3-42.9) 05/27/20 05:01 MCV 88 fl (79-97) 05/27/20 05:01 MCH 29 pg (28-32) 05/27/20 05:01 MCHC 33 % (30-34) 05/27/20 05:01 RDW 13.7 % (13.2-15.2) 05/27/20 05:01 Plt Count 258 K/mm3 (140-440) 05/27/20 05:01 Lymph % (Auto) Systems Admin 05/27/20 05:01 [place] % (Auto) 7.2 % (0.0-7.3) 05/27/20 05:01 Eos % (Auto) 6.4 % (0.0-4.3) H 05/27/20 05:01 Baso % (Auto) 0.9 % (0.0-1.8) 05/27/20 05:01 Lymph # (Auto) 3.3 K/mm3 (1.2-5.4) 05/27/20 05:01 [place] # (Auto) 0.4 K/mm3 (0.0-0.8) 05/27/20 05:01 Eos # (Auto) 0.4 K/mm3 (0.0-0.4) 05/27/20 05:01 Baso # (Auto) 0.1 K/mm3 (0.0-0.1) 05/27/20 05:01 Seg Neutrophils % Systems Admin 05/27/20 05:01 Seg Neutrophils # 1.7 K/mm3 (1.8-7.7) L 05/27/20 05:01 PT 13.4 Sec. (12.2-14.9) 05/26/20 09:25 INR 1.00 (0.87-1.13) 05/26/20 09:25 D-Dimer 354.86 ng/mlDDU (0-234) H 05/26/20 14:39 Sodium 139 mmol/L (137-145) 05/27/20 05:01 Potassium 4.5 mmol/L (3.6-5.0) 05/27/20 05:01 Chloride 103.1 mmol/L (98-107) 05/27/20 05:01 Carbon Dioxide 25 mmol/L (22-30) D 05/27/20 05:01 Anion Gap 15 mmol/L 05/27/20 05:01 BUN 19 mg/dL (7-17) H 05/27/20 05:01 Creatinine 1.0 mg/dL (0.6-1.2) 05/27/20 05:01 Estimated GFR > 60 ml/min 05/27/20 05:01 BUN/Creatinine Ratio 19 % 05/27/20 05:01 Glucose 90 mg/dL (65-100) 05/27/20 05:01 Calcium 10.1 mg/dL (8.4-10.2) 05/27/20 05:01 Magnesium 2.00 mg/dL (1.7-2.3) 05/26/20 09:25 Ferritin 211.6 ng/mL (10.0-200.0) H 05/26/20 14:39 Total Bilirubin 0.30 mg/dL (0.1-1.2) 05/26/20 09:25 Direct Bilirubin < 0.2 mg/dL (0-0.2) 05/26/20 09:25 AST 16 units/L (5-40) 05/26/20 09:25 ALT 15 units/L (7-56) 05/26/20 09:25 Alkaline Phosphatase 49 units/L (35-129) 05/26/20 09:25 Lactate Dehydrogenase 279 units/L (91-180) H 05/26/20 14:39 Total Creatine Kinase 114 units/L (30-135) 05/26/20 09:25 CK-MB (CK-2) 2.0 ng/mL (0.0-4.0) 05/26/20 09:25 CK-MB (CK-2) Rel Index 1.7 (0-4) 05/26/20 09:25 Troponin T < 0.010 ng/mL (0.00-0.029) 05/26/20 09:25 C-Reactive Protein 0.30 mg/dL (0.00-1.30) 05/26/20 14:39 Total Protein 7.2 g/dL (6.3-8.2) 05/26/20 09:25 Albumin 4.2 g/dL (3.9-5) 05/26/20 09:25 Albumin/Globulin Ratio 1.4 % 05/26/20 09:25 Procalcitonin < 0.05 ng/mL (<0.15) 05/26/20 14:39 Urine Color Yellow (Yellow) 05/26/20 09:59 Urine Turbidity Clear (Clear) 05/26/20 09:59 Urine pH 7.0 (5.0-7.0) 05/26/20 09:59 Ur Specific [place] 1.015 (1.003-1.030) 05/26/20 09:59 Urine Protein <15 mg/dl mg/dL (Negative) 05/26/20 09:59 Urine Glucose (UA) Neg mg/dL (Negative) 05/26/20 09:59 Urine Ketones Neg mg/dL (Negative) 05/26/20 09:59 Urine Blood Neg (Negative) 05/26/20 09:59 Urine Nitrite Pos (Negative) 05/26/20 09:59 Urine Bilirubin Neg (Negative) 05/26/20 09:59 Urine Urobilinogen < 2.0 mg/dL (<2.0) 05/26/20 09:59 Ur Leukocyte Esterase Mod (Negative) 05/26/20 09:59 Urine WBC (Auto) 33.0 /HPF (0.0-6.0) H 05/26/20 09:59 Urine RBC (Auto) 1.0 /HPF (0.0-6.0) 05/26/20 09:59 U Epithel Cells (Auto) 1.0 /HPF (0-13.0) 05/26/20 09:59 Urine Bacteria (Auto) 1+ /HPF (Negative) 05/26/20 09:59 Urine Mucus 3+ /HPF 05/26/20 09:59 Coronavirus (PCR) Negative (Negative) 05/27/20 Unknown Microbiology: Microbiology 05/26/20 09:46 Urine,Clean Catch Urine Culture - Preliminary Gram Negative Jamel Avalos/IV: Voiding Method External Female Catheter IV Catheter Type [Left Forearm INT / Saline Lock ] Active Medications - Current Medications Current Medications: Generic Name Dose Route Start Last Admin Trade Name Freq PRN Reason Stop Dose Admin Acetaminophen 650 mg 05/26/20 13:06 Tylenol PO Q4H PRN Pain MILD(1-3)/Fever >100.5/FERNÁNDEZ Hydrocodone Bitart/Acetaminophen 1 each 05/26/20 13:08 05/26/20 21:43 [place] 5/325 PO 1 each Q6HR PRN Administration PAIN Albuterol 2.5 mg 05/26/20 13:06 Proventil IH Q4HRT PRN Shortness Of Breath Atenolol 50 mg 05/27/20 10:00 05/27/20 11:02 Tenormin PO Not Given QDAY ANILA Bupropion HCl 150 mg 05/26/20 22:00 05/27/20 12:59 Wellbutrin PO 150 mg BID ANILA Administration Buspirone HCl 15 mg 05/26/20 14:00 05/27/20 12:09 Buspar PO Not Given TID ANILA Chlorthalidone 12.5 mg 05/27/20 10:00 05/27/20 13:01 Thalitone PO 12.5 mg QDAY ANILA Administration Citalopram Hydrobromide 40 mg 05/27/20 10:00 05/27/20 12:04 Celexa PO 40 mg DAILY ANILA Administration Clonazepam 2 mg 05/26/20 22:00 05/26/20 22:33 Klonopin PO 2 mg QHS ANILA Administration Diphenhydramine HCl 50 mg 05/26/20 22:00 05/26/20 22:31 Benadryl PO 50 mg QHS ANILA Administration Donepezil HCl 10 mg 05/27/20 10:00 05/27/20 13:01 Aricept PO 10 mg QDAY ANILA Administration Fenofibrate 145 mg 05/27/20 10:00 05/27/20 12:03 Tricor PO 145 mg QDAY ANILA Administration Ferrous Sulfate 325 mg 05/27/20 10:00 05/27/20 12:04 Feosol PO 325 mg DAILY ANILA Administration Levofloxacin/Dextrose 500 mg in 100 mls @ 100 mls/hr 05/27/20 12:00 05/27/20 13:03 Levaquin 500mg/100ml IV 100 mls/hr Q24HR ANILA Administration Protocol Lamotrigine 200 mg 05/27/20 10:00 05/27/20 12:02 Lamictal PO 200 mg DAILY ANILA Administration Levetiracetam 500 mg 05/26/20 22:00 05/27/20 12:03 Keppra PO 500 mg BID ANILA Administration Levothyroxine Sodium 88 mcg 05/27/20 06:00 05/27/20 12:08 Synthroid PO Not Given DAILY@0600 ANILA Loratadine/Pseudoephedrine Sulfate 1 each 05/27/20 10:00 Claritin-D 24hr PO Q24HR ANILA Miscellaneous Medication 150 mg 05/26/20 13:15 05/26/20 23:29 Ibandronate Sodium [Boniva] PO Not Given QMONTH ANILA Multivitamins 5 ml 05/27/20 10:00 05/27/20 13:00 Centrum Liq PO 5 ml QDAY ANILA Administration Ondansetron HCl 4 mg 05/26/20 13:06 05/27/20 13:12 Zofran IV 4 mg Q8H PRN Administration Nausea And Vomiting Pantoprazole Sodium 20 mg 05/27/20 10:00 05/27/20 12:03 Protonix PO 20 mg QDAY ANILA Administration Sodium Chloride 10 ml 05/26/20 22:00 05/27/20 12:09 Sodium Chloride Flush Syringe 10 Ml IV 10 ml BID ANILA Administration Sodium Chloride 10 ml 05/26/20 13:06 Sodium Chloride Flush Syringe 10 Ml IV PRN PRN LINE FLUSH Ziprasidone 60 mg 05/26/20 22:00 05/26/20 22:31 Geodon PO 60 mg QHS ANILA Administration
[2020-05-27] MEDS: diphenhydrAMINE 50 MG CAP PO SCH (23:13)
[2020-05-27] MEDS: ZIPRASIDONE 60 MG CAP PO SCH (23:14)
[2020-05-27] MEDS: HYDROcodone/ACETAMINOPHEN 5-325 MG TAB PO PRN (23:14)
[2020-05-28 04:15] VITALS: BP 118/55
[2020-05-28] MEDS: LEVOTHYROXINE 88 MCG TAB PO SCH (05:20)
[2020-05-28] MEDS: busPIRone 10 MG TAB PO SCH (08:30)
[2020-05-28] MEDS: FERROUS SULFATE 325 MG TAB PO SCH (10:43)
[2020-05-28] MEDS: PANTOPRAZOLE 20 MG TAB PO SCH (10:43)
[2020-05-28] MEDS: lamoTRIgine 100 MG TAB PO SCH (10:44)
[2020-05-28] MEDS: atenoloL 50 MG TAB PO SCH (10:44)
[2020-05-28] MEDS: FENOFIBRATE 145 MG TAB PO SCH (10:44)
[2020-05-28] MEDS: levETIRAcetam 500 MG TAB PO SCH (10:44)
--- NOTE | 2020-05-28 10:46 | Discharge Summary ---
Providers - Providers Date of Admission: 05/26/20 13:06 Attending physician: BRANDON HERNDON MD 05/27/20 11:23 Occupational Therapy Evaluate and Treat [CONS] Routine Comment: Reason For Exam: debility Physical Therapy Evaluation and Treat [CONS] Routine Comment: Reason For Exam: debility Primary care physician: [facility] Hospitalization Reason for admission: pneumonia Condition: Stable Hospital course: 75 YO Personal Mcfp Resident with Seizure Disorder, Hypothyroidism, Migraine Headache, Vascular Dementia with Behavioral Disturbance, Cerebral Atherosclerosis, GERD, Obesity Hypoventilation Syndrome, OA presents to ED for evaluation. Patient is confused with diminished cognition at the time of my evaluation and is unable to provide history. Patient history taken from EMS staff, ED staff as well as personal long term staff. As per staff the patient was found to have increased confusion as well as decreased responsiveness this morning. The patient was found to have right lower lobe pneumonia on chest x-ray, metabolic encephalopathy, urinary tract infection. The patient was initiated on pneumonia protocol with IV antibiotic therapy. COVID-19 protocol initiated in the emergency department prior to my evaluation. cxr: Right lower lobe infiltrate Patient clinically improving, covid test negative, will treat for penumonia and UTI. Patient advised of findings and management plan she verbalized understanding. (1) Right lower lobe pneumonia Current Visit: Yes Status: Acute Plan to address problem: Pneumonia protocol: CBC, CMP, chest x-ray, IV antibiotic therapy, blood culture, pulse oximetry, nebulizer therapy. 05/27: CTA chest negative for PE (2) Metabolic encephalopathy Current Visit: Yes Status: Acute Plan to address problem: 05/27: Resolved. CT scan of the head- NEGATIVE, neuro check, seizure precautions, aspiration precautions (3) Person under investigation for COVID-19 Current Visit: Yes Status: Acute Plan to address problem: Negative. Will discontinue Coronavirus protocol: (4) Acute cystitis with dysuria Current Visit: Yes Status: Acute Qualifiers: Urinary tract infection type: site unspecified Hematuria presence: without hematuria Qualified Code(s): N39.0 - Urinary tract infection, site not specified Plan to address problem: IV antibiotic therapy, CBC, CMP, urinalysis, GNR on culture. Continue abx. ( Disposition: [id number] HOME [facility]ER [facility] Time spent for discharge: 35 mins Core Measure Documentation - Palliative Care Palliative Care/ Comfort Measures: Not Applicable - Core Measures Any of the following diagnoses?: none Exam - Physical Exam Narrative exam: General appearance: Present: mild distress, obese - EENT Eyes: Present: PERRL ENT: hearing intact, clear oral mucosa - Neck Neck: Present: supple, normal ROM - Respiratory Respiratory effort: normal, labored Respiratory: bilateral: diminished - Cardiovascular Heart Sounds: Present: S1 & S2. Absent: rub, click - Extremities Extremities: pulses symmetrical, No edema Peripheral Pulses: within normal limits - Abdominal General gastrointestinal: Present: soft, non-tender, non-distended, normal bowel sounds Female genitourinary: Present: normal - Integumentary Integumentary: Present: clear, warm, dry - Musculoskeletal Musculoskeletal: gait normal, strength equal bilaterally - Psychiatric Psychiatric: no appropriate mood/affect, no intact judgment & insight, agitated - Neurologic Neurologic: CNII-XII intact, no focal deficits, moves all extremities, no gait normal - Constitutional Vitals: Temp Pulse Resp BP Pulse Ox 97.6 F 59 L 20 118/55 98 05/28/20 03:26 05/28/20 03:26 05/28/20 09:56 05/28/20 03:26 05/28/20 09:56 Plan Activity: advance as tolerated, fall precautions Diet: low fat Special Instructions: record daily weights, record daily BP diary Additional Instructions: follow with primary vascular doctor for leg pains Follow up with: PRIMARY CARE, [Primary Care Provider] - 3-5 Days Prescriptions: levoFLOXacin [Levaquin TAB] 500 mg PO QDAY #5 tablet HYDROcodone/APAP 5-325 [[place] 5-325 mg TAB] 1 each PO Q6HR PRN #10 tablet PRN Reason: Pain
[2020-05-28] MEDS: CHLORTHALIDONE 25 MG TAB PO SCH (10:59)
[2020-05-28] MEDS: MULTIVITAMINS 5 ML ORAL LIQUID PO SCH (11:00)
[2020-05-28] MEDS: buPROPion 75 MG TAB PO SCH (11:01)
[2020-05-28] MEDS: LORATADINE/PSEUDOEPHEDRINE 10-240 MG TAB 24HR PO SCH (11:03)
[2020-05-28] MEDS: HYDROcodone/ACETAMINOPHEN 5-325 MG TAB PO PRN (11:20)
[2020-05-28] MEDS: CITALOPRAM 20 MG TAB PO SCH (12:30)
[2020-05-28] MEDS: DONEPEZIL 10 MG TAB PO SCH (12:30)
== END 2020-05-28 14:40 | disposition home health service (06) ==
LOC: ED 08:06 → 3A 13:06 → INTOOBSV 13:06 → 3A 05-27 07:02
PROVIDERS: ADMIT Internal Medicine; ATTEND Internal Medicine
DX: J18.9 Pneumonia, unspecified organism (principal); Z20.828 Contact with and (suspected) exposure to other viral communicable diseases; G93.41 Metabolic encephalopathy; E66.2 Morbid (severe) obesity with alveolar hypoventilation; N39.0 Urinary tract infection, site not specified; E03.9 Hypothyroidism, unspecified; G43.909 Migraine, unspecified, not intractable, without status migrainosus; F01.50 Vascular dementia, unspecified severity, without behavioral disturbance, psychotic disturbance, mood disturbance, and anxiety; K21.9 Gastro-esophageal reflux disease without esophagitis; F31.9 Bipolar disorder, unspecified; R55 Syncope and collapse; R26.81 Unsteadiness on feet; M19.90 Unspecified osteoarthritis, unspecified site; Z68.32 Body mass index [BMI] 32.0-32.9, adult; Z79.899 Other long term (current) drug therapy
CPT/HCPCS: 36415; 70450; 71045; 71275; 80048; 80076; 81001; 82550; 82553; 82728; 82947; 83615; 83735; 84145; 84484; 85025; 85379; 85610; 86140; 87076; 87086; 87186; 93005; 96365; 96366; 96367; 96375; 97116; 97161; 97530; 99285; G0378; J0696; J1956; J2405; Q9967; U0003